=== PATIENT | female | born 1960 | race Caucasian/White ===

== ENCOUNTER → 2017-06-12 | Outpatient (CLI) | payer OTHER ==
--- NOTE | 2017-06-12 15:04 | NM ---
EXAMINATION TYPE: NM parathyroid w/spect DATE OF EXAM: 06/12/2017 COMPARISON: NONE HISTORY: Hypercalcemia TECHNIQUE: Following administration of 26.3 mCi Tc99m Sestamibi. Anterior projection images of the neck and ches t were obtained 10 minutes and 3 hours post injection. SPECT images of the neck and chest were obtai melissa and reconstructed in three axes. FINDINGS: Thyroid tracer washout: Delayed images demonstrate near-complete tracer washout from the thyroid. Parathyroid uptake: There is focal increased uptake noted overlying the lower pole of the left thyroi d lobe On the delayed images suggesting underlying parathyroid adenoma. Correlate clinically. Normal uptake: There is physiological tracer uptake in the myocardium, liver, salivary glands, and th yroid gland. IMPRESSION: Findings suggest parathyroid adenoma overlying the lower pole of the left thyroid lobe.
== END | disposition home or self-care (01) ==
LOC: RADNMMAIN 10:35
PROVIDERS: ATTEND Internal Medicine Nephrology
DX: E83.52 Hypercalcemia (principal)
CPT/HCPCS: 78071; A9500